=== PATIENT | female | born 1985 | race Caucasian/White ===

== ENCOUNTER 2016-04-20 17:14 | Emergency (ER) | payer OTHER ==
[~2016-04-20] VITALS: Ht 152.4 cm; Wt 57.0 kg
[~2016-04-20 17:14] MED LIST: BACTDS PO; CYCL-319 PO; IBUP-1542 PO; MED4DP PO; NAPR-260 PO
[2016-04-20 18:00] VITALS: Ht 152.4 cm; Wt 57.0 kg
--- NOTE | 2016-04-20 21:04 | ERD ---
ER Documentation Chief Complaint Date/Time DATE: 04/20/16 TIME: 21:03 Chief Complaint LEFT LOWER ABDOMINAL PAIN X 2WEEKS HPI 30-year-old female presents to emergency department for moment of left lower quadrant abdominal pain radiating to periumbilical area for 2 weeks. Patient discussed the pain as throbbing pain, 8/10 scale, intermittent, not better or worse with anything. Patient denies any nausea or vomiting diarrhea or constipation. Patient denies any flank pain. Patient denies any fever or chills. Patient denies hematuria or dysuria. ROS All systems reviewed and are negative except as per history of present illness. Medications Home Meds Active Scripts Methylprednisolone* (Medrol* DOSE PACK) 4 Mg/Dose-Pack Tab.ds.pk, 4 MG PO . DIRECTED for 6 Days, PACKET Prov:BRAD SANTOS PA-C 06/19/15 Ibuprofen* (Motrin*) 600 Mg Tab, 600 MG PO Q6H Y for PAIN AND OR ELEVATED TEMP, #20 TAB Prov:BRAD SANTOS PA-C 06/19/15 Naproxen* (Naprosyn*) 500 Mg Tablet, 500 MG PO BID Y for PAIN AND/OR INFLAMMATION, #30 TAB Prov:KAYLEN YATES PA-C 01/05/15 Cyclobenzaprine Hcl* (Cyclobenzaprine Hcl*) 10 Mg Tablet, 10 MG PO TID, #20 TAB Prov:KAYLEN YATES PA-C 01/05/15 Sulfamethoxazole-Trimethoprim* (Bactrim* DS) 800-160 Mg Tab, 1 TAB PO BID for 5 Days, TAB Prov:KAYLEN YATES PA-C 01/05/15 Allergies Allergies: Coded Allergies: No Known Allergy (Unverified , 02/27/13) PMhx/Soc Medical and Surgical Hx: pt denies Surgical Hx History of Surgery: No Anesthesia Reaction: No Hx Neurological Disorder: No Hx Respiratory Disorders: No Hx Cardiac Disorders: No Hx Psychiatric Problems: No Hx Miscellaneous Medical Probl: Yes (folicular ovarian cyst one year ago, UTI) Hx Alcohol Use: Yes (socially) Hx Substance Use: No Hx Tobacco Use: No Smoking Status: Never smoker FmHx Family History: No coronary disease, No diabetes, No other Physical Exam Vitals Vital Signs Date Time Temp Pulse Resp B/P Pulse Ox O2 Delivery O2 Flow Rate FiO2 04/20/16 18:00 98.1 63 18 108/65 98 Physical Exam GENERAL: The patient is well developed and appropriate for usual state of health, in no apparent distress. CHEST: Clear to auscultation bilaterally. There are no rales, wheezes or rhonchi. HEART: Regular rate and rhythm. No murmurs, clicks, rubs or gallops. No S3 or S4. ABDOMEN: Soft, nontender and nondistended. Good bowel sounds. No rebound or guarding. No gross peritonitis. No gross organomegaly or masses. No Cameron sign or McBurney point tenderness. BACK: No midline or flank tenderness. EXTREMITIES: Equal pulses bilaterally. There is no peripheral clubbing, cyanosis or edema. No focal swelling or erythema. Full range of motion. Grossly neurovascularly intact. NEURO: Alert and oriented. Cranial nerves 2-12 intact. Motor strength in all 4 extremities with 5/5 strength. Sensation grossly intact. Normal speech and gait. SKIN: There is no apparent rash or petechia. The skin is warm and dry. HEMATOLOGIC AND LYMPHATIC: There is no evidence of excessive bruising or lymphedema. No gross cervical, axillary, or inguinal lymphadenopathy. Result Diagram: 04/20/16210204/20/162102 Results 24 hrs Laboratory Tests Test 04/20/16 20:55 04/20/16 21:03 Urine Bilirubin NEGATIVE Urine Clarity CLEAR Urine Color LT. YELLOW Urine Glucose NEGATIVE% Urine Hemoglobin NEGATIVE Urine Ketones NEGATIVE Urine Leukocyte Esterase NEGATIVE Urine Nitrite NEGATIVE Urine Specific [place] 1.010 Urine Total Protein NEGATIVE Urine Urobilinogen 0.2 E.U./dL Urine pH 5.0 Alanine Aminotransferase (ALT/SGPT) 24IU/L Albumin 4.5g/dl Albumin/Globulin Ratio 1.32 Alkaline Phosphatase 38IU/L Anion Gap 15 Aspartate Amino Transf (AST/SGOT) 19IU/L Basophils # 0.010^3/ul Basophils % 0.3% Blood Morphology Comment Blood Urea Nitrogen 7mg/dl Calcium Level 9.5mg/dl Carbon Dioxide Level 27mmol/L Chloride Level 103mmol/L Creatinine 0.63mg/dl Direct Bilirubin 0.00mg/dl Eosinophils # 0.110^3/ul Eosinophils % 1.4% Globulin 3.40g/dl Glucose Level 78mg/dl Hematocrit 40.0% Hemoglobin 13.3g/dl Indirect Bilirubin 0.2mg/dl Lipase 94U/L Lymphocytes # 2.610^3/ul Lymphocytes % 32.5% Mean Corpuscular Hemoglobin 26.7pg Mean Corpuscular Hemoglobin Concent 33.4g/dl Mean Corpuscular Volume 79.9fl Mean Platelet Volume 10.5fl Monocytes # 0.610^3/ul Monocytes % 7.8% Neutrophils # 4.610^3/ul Neutrophils % 58.0% Nucleated Red Blood Cells # 0.010^3/ul Nucleated Red Blood Cells % 0.0/100WBC Platelet Count 33018^3/UL Potassium Level 3.7mmol/L Red Blood Count 5.0010^6/ul Red Cell Distribution Width 13.5% Sodium Level 141mmol/L Total Bilirubin 0.2mg/dl Total Protein 7.9g/dl White Blood Count 8.010^3/ul PROCEDURE: US Pelvis CLINICAL INDICATION: Pain. TECHNIQUE: Sonographic evaluation of the pelvis was performed utilizing both transabdominal and transvaginal technique. Images were reviewed on the high- resolution PACS workstation. COMPARISON: CT pelvis 04/20/2016, ultrasound pelvis 01/05/2015 appear FINDINGS: The uterus is normal in size, echogenicity, and morphology. The uterus is 8.0 x 3.6 x 4.5 cm. The endometrium is thin and normal measuring 8.2 mm in diameter. The right ovary measures 3.6 x 2.3 x 2.5 cm. The left ovary measures 4.5 x 2.9 x 3.5 cm. There is a 2 x 1.4 x 1.7 cm simple left ovarian cyst. Ovaries are otherwise normal in appearance.. Color doppler vascular flow is demonstrated to both ovaries. There are no adnexal masses. There is trace free fluid in the posterior cul-de-sac. IMPRESSION: Simple left ovarian cyst. Trace pelvic free fluid. Otherwise negative. RPTAT: HMVK .Kristian Cervantes MD, Date Time Electronically viewed and signed by .Kristian Cervantes MD, MD on 04/21/2016 00:21 .K/ Procedures/[facility] Medical Decision Making: Patient symptoms of abdominal pain nonspecific at this time, possibly from the constipation, can be also from the ovarian cyst. No symptoms of ovarian torsion, diverticulitis. There is low suspicion for abdominal emergencies at this time. Patients abdominal exam is normal at this time. Patients radiology exam does not show any abdominal emergencies at this time. There is low suspicion for appendicitis, cholecystitis, abdominal aortic aneurysms or peritonitis at this time. There is low suspicion for sepsis. Patient appears well and is hemodynamically stable. Disposition: Home. Condition: Stable Prescription Colace, tramadol, ibuprofen, MiraLAX Instructions: Patient is advised to take medications as prescribed. Patient is advised to rest, increase fluid intake and do high fiber diet for next 1-2 days and progress as tolerated. Patient is advised that if symptoms are worse, severe abdominal pain, uncontrolled vomiting, high fever, severe flank pain, worst signs and symptoms, to return to the emergency department immediately. Otherwise, patient can follow up with primary care doctor in 5-7 days. See programmer numerical control specialist for possible removal of ovarian cysts if necessary. Departure Diagnosis: Primary Impression: Constipation Constipation type: unspecified constipation type Qualified Code: K59.00 - Constipation, unspecified constipation type Additional Impression: Left ovarian cyst Condition: Stable Patient Instructions: Constipation (Adult), Ovarian Cyst Additional Instructions: Patient is advised to take medications as prescribed. Patient is advised to rest , increase fluid intake and do high fiber diet for next 1-2 days and progress as tolerated. Patient is advised that if symptoms are worse, severe abdominal pain, uncontrolled vomiting, high fever, severe flank pain, worst signs and symptoms, to return to the emergency department immediately. Otherwise, patient can follow up with primary care doctor in 5-7 days. See programmer numerical control specialist for possible removal of ovarian cysts if necessary. KRISTIAN MOTA NP Apr 20, 2016 21:04
[2016-04-20 21:36] LABS: ADD UMIC NO; URINE BILIRUBIN (Dip) NEGATIVE (NEGATIVE); URINE BLOOD (Dip) NEGATIVE (NEGATIVE); URINE COLOR LT. YELLOW (YELLOW); URINE GLUCOSE (Dip) NEGATIVE (NEGATIVE); URINE KETONES (Dip) NEGATIVE (NEGATIVE); URINE LEUKOCYTE ESTERASE (Dip) NEGATIVE (NEGATIVE); URINE NITRITE (Dip) NEGATIVE (NEGATIVE); URINE TOTAL PROTEIN (Dip) NEGATIVE (NEGATIVE); URINE UROBILINOGEN (Dip) 0.2 E.U./dL (0.1-1.0)
[2016-04-20 21:39] LABS: BASOPHILS % 0.3 % (0.0-2.0); EOSINOPHILS # 0.1 10^3/ul (0.0-0.5); EOSINOPHILS % 1.4 % (0.0-7.0); HEMOGLOBIN 13.3 g/dl (12.0-16.0); LYMPHOCYTES # 2.6 10^3/ul (0.8-2.9); LYMPHOCYTES % 32.5 % (15.0-51.0); MEAN CORPUSCULAR HEMOGLOBIN 26.7 pg (29.0-33.0); MEAN CORPUSCULAR HGB CONC 33.4 g/dl (32.0-37.0); MEAN CORPUSCULAR VOLUME 79.9 fl (82.0-101.0); MEAN PLATELET VOLUME 10.5 fl (7.4-10.4); MONOCYTE # 0.6 10^3/ul (0.3-0.9); MONOCYTES % 7.8 % (0.0-11.0); NEUTROPHIL # 4.6 10^3/ul (1.6-7.5); PLATELET COUNT 240 10^3/UL (140-440); RED CELL DISTRIBUTION WIDTH 13.5 % (11.5-14.5)
[2016-04-20 21:41] LABS: CONDITION 1
[2016-04-20 21:42] LABS: LH ANALYZER COMMENTS 1
[2016-04-20 21:53] LABS: ALBUMIN 4.5 g/dl (3.3-4.9)
[2016-04-20 21:54] LABS: POTASSIUM 3.7 mmol/L (3.5-5.1)
[2016-04-20 21:56] LABS: ALBUMIN/GLOBULIN RATIO 1.32; BILIRUBIN,INDIRECT 0.2 mg/dl (0-1.1); BILIRUBIN,TOTAL 0.2 mg/dl (0.2-1.3); CREATININE 0.63 mg/dl (0.44-1.00); TOTAL PROTEIN 7.9 g/dl (6.1-8.1)
[2016-04-20 21:57] LABS: CALCIUM 9.5 mg/dl (8.4-10.2)
--- NOTE | 2016-04-20 22:17 | RADRPT ---
PROCEDURE: CT Abdomen and Pelvis without contrast CLINICAL INDICATION: Left lower quadrant pain radiating to the periumbilical area x2 weeks TECHNIQUE: Transaxial images were obtained through the abdomen and pelvis on a multi-slice scanner without the intravenous contrast administration. Some oral contrast had previously been given. Sagi ttal and coronal re-formations were subsequently reconstructed. One or more of the following dose reduction techniques were used: - Automated exposure control. - Adjustment of the mA and/or kV according to patient size. - Use of iterative reconstruction technique. Radiation dose: CTDIvol = 6.95 mGy; DLP = 361.49 mGy-cm. COMPARISON: Comparison to previous pelvic sonogram done and 01/05/2015. The previous pelvic ultrasound was unremarkable. FINDINGS: Lung bases: The visualized lung bases appear unremarkable. Liver: Normal in size and in attenuation. There is no focal lesion. Gallbladder: The wall is not thickened. No radiopaque stones are identified. Bile ducts: The intra and extrahepatic bile ducts are normal in caliber. Pancreas: Appears normal with no mass or inflammation evident. Spleen: Normal in size with no focal lesion. Adrenals: Normal with no mass identified. Kidneys, ureters and bladder: The kidneys are normal in size and there is no mass, pathological calc ification, or hydronephrosis evident. There is no perinephric stranding. The ureters are normal in c aliber and no ureteroliths are identified. The bladder is poorly distended. Reproductive organs: The uterus is midline. The left ovary is hypodense and may contain cysts. Stomach and bowel: The stomach appears unremarkable as is the small bowel. Substantial stool is see n to the colon but there is no evidence of bowel obstruction or inflammation. Appendix: A normal vermiform appendix is evident. Peritoneum: No free intraperitoneal fluid or air is identified. Aorta: Normal in caliber with no aneurysmal dilatation. IVC: Unremarkable. Lymph nodes: No pathologically enlarged nodes are identified. Osseous structures: The osseous elements appear intact. IMPRESSION: 1. Substantial stool seen to the colon without evidence of bowel obstruction or inflammation. A no rmal vermiform appendix is evident. 2. No evidence of urinary outflow obstruction or ureterolithiasis. 3. There is no free intraperitoneal fluid or air. 4. Suspicion of small left ovarian cysts. 5. Otherwise, unremarkable noncontrast enhanced CT scan of the abdomen and pelvis. Jennifer James Physician Date Time Electronically viewed and signed by Jennifer James Physician on 04/20/2016 22:16 /
--- NOTE | 2016-04-21 00:22 | RADRPT ---
PROCEDURE: US Pelvis CLINICAL INDICATION: Pain. TECHNIQUE: Sonographic evaluation of the pelvis was performed utilizing both transabdominal and tr ansvaginal technique. Images were reviewed on the high-resolution PACS workstation. COMPARISON: CT pelvis 04/20/2016, ultrasound pelvis 01/05/2015 appear FINDINGS: The uterus is normal in size, echogenicity, and morphology. The uterus is 8.0 x 3.6 x 4.5 cm. The endometrium is thin and normal measuring 8.2 mm in diameter. The right ovary measures 3.6 x 2.3 x 2.5 cm. The left ovary measures 4.5 x 2.9 x 3.5 cm. There is a 2 x 1.4 x 1.7 cm simple left ovarian cyst. Ovaries are otherwise normal in appearance.. Color dop pler vascular flow is demonstrated to both ovaries. There are no adnexal masses. There is trace f ree fluid in the posterior cul-de-sac. IMPRESSION: Simple left ovarian cyst. Trace pelvic free fluid. Otherwise negative. RPTAT: HMVK .Kristian Cervantes MD, MD Date Time Electronically viewed and signed by .Kristian Cervantes MD, MD on 04/21/2016 00:21 .K/
[2016-04-21] MEDS ORDERED: POLY17PO6 PO (00:34)
[2016-04-21] MEDS ORDERED: TRAM50TA2 PO (00:34)
[2016-04-21] MEDS ORDERED: DOCU-144 PO (00:34)
[2016-04-21] MEDS ORDERED: IBUP-1542 PO (00:34)
[2016-04-21 00:47] VITALS: BP 105/67; PULSE 60; RESP 18; TEMP 97.7
== END 2016-04-21 00:47 | disposition home health service (06) ==
LOC: FTE 17:14
DX: K59.00 Constipation, unspecified (principal); N83.202 Unspecified ovarian cyst, left side
CPT/HCPCS: 36415; 74176; 76830; 76856; 80053; 81003; 83690; 85025

== ENCOUNTER 2017-01-04 14:39 | Emergency (ER) | payer OTHER ==
[~2017-01-04] VITALS: Ht 154.9 cm; Wt 54.5 kg
[~2017-01-04 14:39] MED LIST changes: +DOCU-144 PO; +POLY17PO6 PO; +TRAM50TA2 PO
[2017-01-04 14:42] VITALS: Ht 154.9 cm; Wt 54.5 kg
--- NOTE | 2017-01-04 17:15 | ERD ---
ER Documentation Chief Complaint Date/Time DATE: 01/04/17 TIME: 17:14 Chief Complaint lower abd pain since yesterday with diarrhea denies n/v HPI 31y/o Female, with history of ovarian cyst, presents to ER c/o intermittent pelvic pain for 1 week. The pain is described as cramping, sometimes sharp, located initially on the left lower quadrant, currently, on RLQ. Pain is rated 7 /10 max intensity. Improved by ibuprofen. The patient reports one episode of diarrhea, nonbloody, non mucous today. Denies fever, no N/V/D, no urinary symptoms. ROS No fever, chills, no constitutional symptoms. Denies melena, upper GI, constipation. All systems reviewed and are negative except as per history of present illness. Medications Home Meds Active Scripts Ibuprofen* (Motrin*) 600 Mg Tab, 600 MG PO Q6H Y for PAIN AND OR ELEVATED TEMP, #30 TAB Prov:KRISTIAN MOTA WAREHOUSE STOCK CLERK 04/21/16 Docusate Sodium* (Colace*) 100 Mg Capsule, 100 MG PO TID, #30 CAP Prov:KRISTIAN MOTA WAREHOUSE STOCK CLERK 04/21/16 Polyethylene Glycol* (Miralax*) 17 Gm Powd.pack, 17 GM PO DAILY, #7 Prov:KRISTIAN MOTA WAREHOUSE STOCK CLERK 04/21/16 Tramadol HCl (Tramadol HCl) 50 Mg Tablet, 50 MG PO Q6 Y for PAIN, #20 TAB Prov:KRISTIAN MOTA WAREHOUSE STOCK CLERK 04/21/16 Methylprednisolone* (Medrol* DOSE PACK) 4 Mg/Dose-Pack Tab.ds.pk, 4 MG PO . DIRECTED for 6 Days, PACKET Prov:BRAD SANTOS PA-C 06/19/15 Ibuprofen* (Motrin*) 600 Mg Tab, 600 MG PO Q6H Y for PAIN AND OR ELEVATED TEMP, #20 TAB Prov:BRAD SANTOS PA-C 06/19/15 Naproxen* (Naprosyn*) 500 Mg Tablet, 500 MG PO BID Y for PAIN AND/OR INFLAMMATION, #30 TAB Prov:KAYLEN YATES PA-C 01/05/15 Cyclobenzaprine Hcl* (Cyclobenzaprine Hcl*) 10 Mg Tablet, 10 MG PO TID, #20 TAB Prov:KAYLEN YATES-C 01/05/15 Sulfamethoxazole-Trimethoprim* (Bactrim* DS) 800-160 Mg Tab, 1 TAB PO BID for 5 Days, TAB Prov:KAYLEN YATES SOLO 01/05/15 Allergies Allergies: Coded Allergies: No Known Allergy (Unverified , 02/27/13) PMhx/Soc (+) social alcohol intake History of Surgery: No Anesthesia Reaction: No Hx Neurological Disorder: No Hx Respiratory Disorders: No Hx Cardiac Disorders: No Hx Psychiatric Problems: No Hx Miscellaneous Medical Probl: Yes (folicular ovarian cyst one year ago, UTI) Hx Alcohol Use: Yes (socially) Hx Substance Use: No Hx Tobacco Use: No FmHx No family hx of DM,HTN, CAD Physical Exam Vitals Vital Signs Date Time Temp Pulse Resp B/P Pulse Ox O2 Delivery O2 Flow Rate FiO2 01/04/17 14:42 98.7 66 18 124/58 99 Physical Exam Alert, hydrated, no distress Resp: Clear to auscultation bilaterally Cardio: Regular rate and rhythm, no murmurs Abd: Soft, non tender, non distended. Normal bowel sounds, no peritoneal signs Skin: No petechiae or rashes Back: No midline or flank tenderness Ext: No cyanosis, or edema Neur: Awake and alert Psych: Normal Mood and Affect Results 24 hrs Laboratory Tests Test 01/04/17 17:40 Bedside Urine pH (LAB) 5.5 Bedside Urine Protein (LAB) Negative Bedside Urine Glucose (UA) Negative Bedside Urine Ketones (LAB) Negative Bedside Urine Blood Negative Bedside Urine Nitrite (LAB) Negative Bedside Urine Leukocyte Esterase (L Negative Procedures/MDM Pelvic pain differential includes: appendicitis, UTI, ovarian cyst, PID, renal stone. Low suspicion acute abdomen, physical exam unremarkable, except for mild pain in RLQ to deep palpation. Labs reviewed US: 2 cm complex cystic lesion in the right ovary is likely a hemorrhagic/ corpus luteal cyst. Otherwise, unremarkable pelvic ultrasound. Results d/w patient. No US evidence of bleeding. I will manage the patient conservatively with pain medications and f/u with PCP in 2-4 days Departure Condition: Stable EMMA LYN MD Jan 04, 2017 17:15
[2017-01-04 17:32] LABS: URINE BLOOD (Dip) POC Negative (NEGATIVE)
--- NOTE | 2017-01-04 18:09 | RADRPT ---
PROCEDURE: US Pelvis CLINICAL INDICATION: Pelvic pain TECHNIQUE: Multiple sonographic images of the pelvis were obtained utilizing a transabdominal and endovaginal technique. The images were reviewed on a PACS workstation. COMPARISON: None. LMP: 12/24/2016 FINDINGS: The uterus measures 8.2 x 3.1 x 5.1 cm. The endometrial echo complex measures 6 mm in thickness. N o discrete lesion is seen. The right ovary measures 4.6 x 2.4 x 2.9 cm. The left ovary measures 4.1 x 1.7 x 2.1 cm. There is no rmal vascular flow in both ovaries. There is a 2 cm cystic lesion with low level internal echoes in the right ovary without significant vascular flow which is likely a hemorrhagic/corpus luteal cyst. No significant pelvic free fluid is identified. IMPRESSION: 2 cm complex cystic lesion in the right ovary is likely a hemorrhagic/corpus luteal cyst. Otherwise, unremarkable pelvic ultrasound. RPTAT: EE Physician Graciela Date Time Electronically viewed and signed by Physician Graciela on 01/04/2017 18:08 /
[2017-01-04] MEDS ORDERED: HYDR-906 PO (18:31)
[2017-01-04] MEDS ORDERED: IBUP400T22 PO (18:31)
[2017-01-04 18:50] VITALS: BP 123/70; PULSE 56; RESP 16
== END 2017-01-04 18:51 | disposition home or self-care (01) ==
LOC: FTE 14:39
DX: N83.11 Corpus luteum cyst of right ovary (principal)
CPT/HCPCS: 76856; 81003; Z7502

== ENCOUNTER 2017-08-10 19:30 | Emergency (ER) | END 2017-08-11 00:06 | disposition home or self-care (01) ==